=== PATIENT | female | born 1970 | race African-American/Black ===

== ENCOUNTER 2018-01-08 08:19 | Emergency (ER) | payer BC ==
[2018-01-08] MEDS ORDERED: Nitroglycerin 2% Ointment 1 INCH/1 GM Packet ONE (09:12)
[2018-01-08 09:22] LABS: #Basophils 0.1 thou/uL (0.0-0.2); #Eosinphils 0.1 thou/uL (0.0-0.7); #Lymphocytes 2.3 thou/uL (1.20-3.40); #Monocytes 0.4 thou/uL (0.11-0.59); #Neutrophils 2.8 thou/uL (1.40-6.50); %Basophils 2.2 % (0.0-1.0); %Eosinophils 2.5 % (0.0-10.0); %Lymphocytes 40.3 % (21.0-51.0); %Monocytes 6.6 % (0.0-10.0); %Neutrophils 48.3 % (42.0-75.0); Hemoglobin 13.3 g/dL (12.0-16.0); Mean Corpuscular HGB CONC 32.2 g/dL (32.0-36.0); Mean Corpuscular Hemoglobin 30.1 pg (27.0-31.0); Mean Corpuscular Volume 93.5 fl (81.0-99.0); Mean Platelet Volume 7.5 fL (7.4-10.4); Platelet Count 357 thou/uL (130-400); Red Blood Cell (RBC) Count 4.42 mill/uL (4.20-5.40); White Blood Cell (WBC) Count 5.7 thou/uL (4.8-10.8)
[2018-01-08 09:38] LABS: ALT (SGPT) 16 U/L (8-55); AST (SGOT) 18 U/L (5-34); Albumin 4.6 g/dL (3.5-5.0); Alkaline Phosphatase 104 U/L (40-150); Anion Gap 14 mmol/L (10-20); BUN (Urea Nitrogen) 11 mg/dL (7.0-18.7); Bilirubin, Total 0.4 mg/dL (0.2-1.2); Calc. Creatinine Clearance 0 mL/min (70-130); Carbon Dioxide 26 mmol/L (22-29); Chloride 103 mmol/L (98-107); Estimated GFR-MDRD 70; Globulin 3.9 g/dL (2.4-3.5); Glucose 87 mg/dL (70-105); Potassium 4.2 mmol/L (3.5-5.1); Protein, Total 8.5 g/dL (6.0-8.3); Sodium 139 mmol/L (136-145)
[2018-01-08 09:43] LABS: CKMB 1.5 ng/mL (0-6.6); Troponin I Less than 0.010 ng/mL (< 0.028)
--- NOTE | 2018-01-08 10:57 | RAD ---
PORTABLE CHEST: Date: 01/08/18 HISTORY: Chest pain. FINDINGS: Heart size is within normal limits for portable technique. Mediastinal structures appear unremarkable . The lungs are clear of any infiltrative process. IMPRESSION: Heart size upper limits of normal. POS: [facility]
== END 2018-01-08 09:55 | disposition home or self-care (01) ==
LOC: ERS 08:19
DX: M25.512 Pain in left shoulder (principal)
CPT/HCPCS: 71045; 80053; 82553; 84484; 85025; 85379; 93005

== ENCOUNTER 2019-01-19 15:34 | Outpatient (CLI) | payer OTHER ==
--- NOTE | 2019-01-20 11:14 | MMO ---
Bilateral MAMMO Bilat Screen [facility]. CLINICAL HISTORY: Patient is 48 years old and is seen for screening. The patient has the following family history of breast cancer: maternal aunt, early 40's. The patient has no personal history of cancer. VIEWS: The views performed were: bilateral craniocaudal; bilateral craniocaudal with tomosynthesis; bilateral mediolateral oblique; and bilateral mediolateral oblique with tomosynthesis. FILMS COMPARED: The present examination has been compared to prior imaging studies performed at [facility] on 08/05/2014 and 09/18/2016. MAMMOGRAM FINDINGS: There are scattered fibroglandular densities. There are benign appearing calcifications seen in both breasts. There are no suspicious masses, suspicious calcifications, or new areas of architectural distortion. IMPRESSION: THERE IS NO MAMMOGRAPHIC EVIDENCE OF MALIGNANCY. A ROUTINE FOLLOW-UP MAMMOGRAM IN 1 YEAR IS RECOMMENDED. THE RESULTS OF THIS EXAM WERE SENT TO THE PATIENT. ACR BI-RADS Category 2 - Benign finding MAMMOGRAPHY NOTE: 1. A negative mammogram report should not delay a biopsy if a dominant of clinically suspicious mass is present. 2. Approximately 10% to 15% of breast cancers are not detected by mammography. 3. Adenosis and dense breasts may obscure an underlying neoplasm.
== END 2019-01-19 15:35 | disposition home or self-care (01) ==
LOC: BICMAMMO 15:34
PROVIDERS: ATTEND Physician Assistant
DX: Z12.31 Encounter for screening mammogram for malignant neoplasm of breast (principal); Z80.3 Family history of malignant neoplasm of breast
CPT/HCPCS: 77063; 77067

== ENCOUNTER 2019-03-29 21:31 | Emergency (ER) | payer SELFPAY ==
[~2019-03-29 21:31] MED LIST: ISOVUE-370 76%-LOCM 1 ML ONE
--- NOTE | 2019-03-29 22:37 | RAD ---
EXAM: Chest 2 views: HISTORY: Chest pain and shoulder pain COMPARISON: None. FINDINGS: There is a normal-sized cardiomediastinal silhouette. There is no evidence of consolidation, mass, or pleural effusion. The bones are unremarkable. IMPRESSION: No evidence of acute cardiopulmonary disease
[2019-03-29 23:19] LABS: #Basophils 0.1 thou/uL (0.0-0.2); #Eosinphils 0.2 thou/uL (0.0-0.7); #Lymphocytes 2.3 thou/uL (1.20-3.40); #Monocytes 0.4 thou/uL (0.11-0.59); #Neutrophils 3.4 thou/uL (1.40-6.50); %Basophils 1.5 % (0.0-1.0); %Eosinophils 2.8 % (0.0-10.0); %Lymphocytes 35.7 % (21.0-51.0); %Neutrophils 54.2 % (42.0-75.0); Hemoglobin 12.7 g/dL (12.0-16.0); Mean Corpuscular HGB CONC 33.2 g/dL (32.0-36.0); Mean Corpuscular Hemoglobin 30.4 pg (27.0-31.0); Mean Corpuscular Volume 91.7 fL (78.0-98.0); Mean Platelet Volume 7.1 fL (7.4-10.4); Platelet Count 346 thou/uL (130-400); RBC Distribution Width 11.8 % (11.5-14.5); Red Blood Cell (RBC) Count 4.18 mill/uL (4.20-5.40); White Blood Cell (WBC) Count 6.4 thou/uL (4.8-10.8)
[2019-03-29 23:39] LABS: ALT (SGPT) 17 U/L (8-55); AST (SGOT) 16 U/L (5-34); Albumin 4.6 g/dL (3.5-5.0); Alkaline Phosphatase 108 U/L (40-150); Anion Gap 13 mmol/L (10-20); BUN (Urea Nitrogen) 16 mg/dL (7.0-18.7); Bilirubin, Total 0.3 mg/dL (0.2-1.2); Calc. Creatinine Clearance 0 mL/min (70-130); Calcium 10.1 mg/dL (7.8-10.44); Carbon Dioxide 26 mmol/L (22-29); Chloride 105 mmol/L (98-107); Estimated GFR-MDRD 65; Globulin 3.2 g/dL (2.4-3.5); Glucose 98 mg/dL (70-105); Potassium 4.3 mmol/L (3.5-5.1); Protein, Total 7.8 g/dL (6.0-8.3); Sodium 140 mmol/L (136-145)
[2019-03-30] MEDS ORDERED: Acetaminophen 500 MG TAB ONE (01:05)
[2019-03-30 02:28] LABS: Troponin I Less than 0.010 ng/mL (< 0.028)
[2019-03-30] MEDS ORDERED: Ketorolac Tromethamine 30 MG/ML VIAL ONE (02:50)
--- NOTE | 2019-03-30 08:06 | CT ---
PRELIMINARY REPORT/[facility]/EMERGENCY AFTER HOURS PROCEDURE: EXAM: CT Angiography Chest With Contrast EXAM DATE/TIME: 03/30/2019 12:02 AM CLINICAL HISTORY: 48 years old, female; Signs and symptoms; Shortness of breath; Patient HX: F48 presents to ED with C/ O intermittent shoulder pain, onset Friday with associated SOB and non-productive cough that have all worsened today. Describes the pain as pressure and reports that it radiates to her L ribs. D enies leg swelling and family HX of blood clots. PT takes estradiol every other day. Denies n/v/d, abd pain, urinary complaints and fever. Denies cardiac HX and family HX of cardiac problems. Denies r nela. Mechanism of injury TECHNIQUE: Imaging protocol: Axial computed tomographic angiography images of the chest with intravenous contras t using CT angiography protocol. Coronal and sagittal reformatted images were created and reviewed. 3 D rendering: MIP reconstructed images were created and reviewed. COMPARISON: No relevant prior studies available. FINDINGS: Pulmonary arteries: There is no evidence of peripheral filling defects within the pulmonary arterial circulation to suggest pulmonary embolism. Aorta: The aorta is normal. 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 Lungs: There is subpleural atelectasis of the dependent portions of the lungs. There is LEFT basilar lung atelectasis Pleural space: Unremarkable. No pneumothorax. No pleural effusion. Heart: Unremarkable. No cardiomegaly. No pericardial effusion. Lymph nodes: Unremarkable. No enlarged lymph nodes. Bones/joints: Unremarkable. No acute fracture. Soft tissues: Unremarkable. IMPRESSION: There is no CT evidence of acute pulmonary embolism. Thank you for allowing us to participate in the care of your patient. Dictated and Authenticated by: Bismark Mccray MD 03/30/2019 1:12 AM Central Time ([place] & [place]) FINAL REPORT CT ANGIOGRAM OF CHEST: Date: 03/29/19 TECHNIQUE: CT angiogram of chest was performed in the axial plane. Three-dimensional reformatted images are subm itted for interpretation. HISTORY: Intermittent chest pain. FINDINGS: Adequate contrast opacification of the pulmonary arterial systems to the level of the segmental arter ies. No filling defects to suggest thromboembolism. Linear opacities in the lower lobes due to atelec tasis, pneumonia, or aspiration. 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 IMPRESSION: This report is in agreement with the preliminary report by [facility]. No evidence of acute pulmonary arter y embolism to the level of the segmental arteries. POS: [facility]
== END 2019-03-30 02:55 | disposition home or self-care (01) ==
LOC: ERS 21:31
DX: R07.81 Pleurodynia (principal); M25.512 Pain in left shoulder; E78.5 Hyperlipidemia, unspecified; I10 Essential (primary) hypertension; Z79.899 Other long term (current) drug therapy
CPT/HCPCS: 36415; 71046; 71275; 80053; 84484; 85025; 93005; 96374; J1885; Q9966

== ENCOUNTER 2020-12-25 15:42 | Outpatient (CLI) | payer BC | END 2020-12-25 15:43 | disposition home or self-care (01) | LOC: BICMAMMO 15:42 | PROVIDERS: ATTEND Physician Assistant | DX: Z12.31 Encounter for screening mammogram for malignant neoplasm of breast (principal); Z80.3 Family history of malignant neoplasm of breast; N64.89 Other specified disorders of breast | CPT/HCPCS: 77063; 77067 ==

== ENCOUNTER 2020-12-29 08:47 | Outpatient (CLI) | payer BC | END 2020-12-29 08:48 | disposition home or self-care (01) | LOC: BICMAMMO 08:47 | PROVIDERS: ATTEND Physician Assistant | DX: R92.2 Inconclusive mammogram (principal) | CPT/HCPCS: G0279 ==

== ENCOUNTER 2021-08-09 10:26 | Outpatient (CLI) | payer BC | END 2021-08-09 10:27 | disposition home or self-care (01) | LOC: BICMAMMO 10:26 | PROVIDERS: ATTEND Physician Assistant | DX: R92.8 Other abnormal and inconclusive findings on diagnostic imaging of breast (principal) | CPT/HCPCS: G0279 ==

== ENCOUNTER 2022-11-25 15:43 | Outpatient (CLI) | payer BC | END 2022-11-25 15:44 | disposition home or self-care (01) | LOC: BICMAMMO 15:43 | PROVIDERS: ATTEND Physician Assistant | DX: Z12.31 Encounter for screening mammogram for malignant neoplasm of breast (principal); Z80.3 Family history of malignant neoplasm of breast | CPT/HCPCS: 77063; 77067 ==

== ENCOUNTER 2023-09-17 12:18 | Emergency (ER) | payer BC ==
[2023-09-17] MEDS ORDERED: Ketorolac Tromethamine 30 MG/ML VIAL ONE (13:34)
== END 2023-09-17 14:20 | disposition home or self-care (01) ==
LOC: ERS 12:18
DX: M25.562 Pain in left knee (principal); I10 Essential (primary) hypertension; Z79.899 Other long term (current) drug therapy
CPT/HCPCS: 96372; 99283; J1885

== ENCOUNTER 2023-11-27 15:47 | Outpatient (CLI) | payer BC | END 2023-11-27 15:48 | disposition home or self-care (01) | LOC: BICMAMMO 15:47 | PROVIDERS: ATTEND Physician Assistant | DX: Z12.31 Encounter for screening mammogram for malignant neoplasm of breast (principal); Z80.3 Family history of malignant neoplasm of breast | CPT/HCPCS: 77063; 77067 ==

== ENCOUNTER 2024-07-30 13:44 | Outpatient (CLI) | payer BC | END 2024-07-30 13:45 | disposition home or self-care (01) | LOC: MRI 13:44 | DX: M54.50 Low back pain, unspecified (principal) | CPT/HCPCS: 71046 ==

== ENCOUNTER 2025-08-01 15:46 | Outpatient (CLI) | payer BC | END 2025-08-01 15:47 | disposition home or self-care (01) | LOC: BICRAD 15:46 | PROVIDERS: ATTEND Family Medicine | DX: M17.0 Bilateral primary osteoarthritis of knee (principal) ==